=== PATIENT | male | born 1980 | race Caucasian/White ===

== ENCOUNTER 2021-02-22 10:47 | Observation (INO) | payer OTHER, SELFPAY ==
[2021-02-22] VITALS (10 sets, daily range): BP systolic 100–133; BP diastolic 53–81; PULSE 55–106; RESP 15–18; TEMP 36.6–37.2; O2SAT 96–100; BMI 29.7; BMI 31.3
--- NOTE | 2021-02-22 | APP_PTH ---
PATIENT: ERIC MARTINEZ LOC: MS2 U#:[id number] AGE/SX: 40/M ROOM: [facility] [id number] RE02/22/[address]: Dr. Oskar Nguyen MD : 1980 BED: 1 DIS: 02/23/2021 SPEC #: [id number] RECD: 02/24/21 07:35 STATUS: SANDI REQ #: [id number] BRIANNE: 02/22/21 00:[address]: Oskar Nguyen DEPT: SURGICAL PATHOLOGY RECD BY: Luis Antonio Colunga ENTERED: 02/24/21 08:08 SP TYPE: APPENDIX OTHR DR: No Primary Care Phys Tissues: Appendix, NOS Procedures: Surgery Specimen Level III HEADER OPERATION: Laparoscopic appendectomy PRE-OP DIAGNOSIS: Acute appendicitis TISSUE SUBMITTED: Appendix MICROSCOPIC DIAGNOSIS Appendix, appendectomy: Acute appendicitis and periappendicitis. TANVIR:kade 02/25/2021 MICROSCOPIC DESCRIPTION Slides are reviewed. GROSS DESCRIPTION Received in fixative is one container labeled with the patient's name and designated appendix. The specimen consists of a C-shaped appendix measuring 8 cm in length and up to 1 cm in diameter. The attached periappendiceal adipose tissue measures up to 1.5 cm in width. The serosa is congested. No obvious perforation is identified. The serosa is covered with puga, purulent exudate. The lumen contains fecal material. No fecalith is identified. [employer] Supervisor sections are submitted in one cassette. / SJ:kade 02/24/2021 :2 CPT: 13499
--- NOTE | 2021-02-22 11:01 | CT_ITS ---
We are attempting to reach an attending provider to discuss findings. An addendum with communication details will be sent when the communication is complete. EXAM: CT ABDOMEN AND PELVIS WITH INTRAVENOUS CONTRAST : 1980 CLINICAL INDICATION: abdominal pain -- IV PO Contrast TECHNIQUE: Helically acquired images were obtained of the abdomen and pelvis with intravenous contrast. This CT exam was performed using one or more of the following dose reduction techniques: automated exposure control, adjustment of the mA and/or kV according to patient size, and/or use of iterative reconstruction technique. This report was created using [employer] report [employer] technology. CONTRAST: Oral Tamp; IV Gastrografin Tamp; 100mL Isovue-300 COMPARISON: None. FINDINGS: LOWER THORAX: Unremarkable. Lung bases are clear. No cardiomegaly. No significant pericardial effusion. ABDOMEN: LIVER: Unremarkable. Homogeneous. No focal mass. GALLBLADDER AND BILE DUCTS: Unremarkable. No calcified gallstones. No gallbladder distention or wall edema. No intra- or extrahepatic biliary ductal dilation. PANCREAS: Unremarkable. No focal cystic or solid mass. SPLEEN: Unremarkable. Normal size without focal cystic or solid mass. ADRENALS: Unremarkable. No nodules. KIDNEYS AND URETERS: Unremarkable. Normal renal size and position. No hydronephrosis. STOMACH AND BOWEL: Unremarkable. No stomach or bowel distention. No focal inflammatory change. PELVIS: APPENDIX: An enlarged retrocecal appendix noted containing appendicoliths and associated with adjacent fat stranding consistent with acute appendicitis. Appendix measures 12 mm in maximum diameter. No evidence of perforation or abscess. BLADDER: Unremarkable. REPRODUCTIVE: Unremarkable as visualized. No mass. ABDOMEN and PELVIS: INTRAPERITONEAL SPACE: Unremarkable. No ascites or other fluid collection. No free air. BONES/JOINTS: Unremarkable. No suspicious lytic or blastic abnormality. SOFT TISSUES: Unremarkable. No discrete abdominal or pelvic wall hernia. VASCULATURE: Unremarkable. Abdominal aorta is non-dilated. LYMPH NODES: Unremarkable. No enlarged lymph nodes. CT/Abdomen/Pelvis WITH Contrast IMPRESSION: Acute retrocecal appendicitis without evidence of abscess or perforation. Individualized dose optimization techniques were used for this CT. at 1348 Reported and signed by: Tez Gordon MD Electronically Signed: Tez Gordon MD at 13:47 EDT Tel , Service support ,
--- NOTE | 2021-02-22 11:04 | EDS_ITS ---
HPI HPI - GI History of Present Illness Chief Complaint: Abd Pain Informant: patient and spouse/S.O. Narrative Narrative: 40-year-old male presents to the emergency department with abdominal pain. Patient states that a lower abdominal pressure began yesterday followed by diarrhea. He notes vomiting this morning. He also notes a sharp pain in the right lower quadrant. Pain is worse with movement and car ride. Reported fevers. He got his second Covid vaccination last Wednesday has had a headache and fatigue most of the week. No prior abdominal surgeries. He takes no medications. PFSH PFSH Medical History no medical history no medical history Home Medications NK 02/22/21 [History Last Taken Unknown] Allergy/AdvReac Type Severity Reaction Status Date / Time amoxicillin [Amoxicillin] Allergy Mild Rash Verified 02/22/21 10:48 egg Allergy Mild Unknown Verified 02/22/21 10:48 Surgical History no surgical history no surgical history Social History (Updated 02/22/21 @ 11:[address] Oskar Bender, DO) current gender identity: male Smoking Status: Never smoker substance use type: does not use ROS ROS ED Constitutional Constitutional ED: Denies chills or weight loss Eyes Eyes: Denies change in vision or diplopia ENT ENT ED: Denies ear pain, rhinorrhea or sore throat Cardiovascular Cardiovascular: Denies chest pain, orthopnea, palpitations or racing heartbeat Respiratory/Chest Respiratory/Chest: Denies cough, dyspnea or orthopnea Gastrointestinal Gastrointestinal: Reports abdominal pain, diarrhea, nausea and vomiting Genitourinary Genitourinary ED: Denies dysuria, hematuria or urinary frequency Musculoskeletal Musculoskeletal: Denies arthralgias or myalgias Integumentary Denies abscess or rash Neurologic Neurologic: Denies headache(s) or weakness Psychiatric Psychiatric: Denies anxiety, depression, suicidal ideation or suicidal thoughts Endocrine Endocrinology: Denies polydipsia, polyphagia or polyuria Allergic/Immunologic Allergic/Immunologic ED: Denies mouth swelling, tongue swelling or urticaria EXAM Physical Exam Const Vital Signs: 02/22/21 10:49 Temperature 98.9 F Temperature Source Temporal Pulse Rate 65 Respiratory Rate 17 Blood Pressure 127/81 H Blood Pressure Mean 96 Pulse Ox 100 Oxygen Delivery Method Room Air Positive well nourished and well developed General Appearance ED: well developed HEENT Reports normocephalic, head/scalp atraumatic, TM's clear and moist mucous membranes normocephalic and atraumatic Tympanic Membrane ED: Yes TM's clear Eyes PERRL and EOMs intact bilaterally Neck no lymphadenopathy, supple and no JVD Resp normal respiratory effort and clear to auscultation bilaterally Cardio regular rate, regular rhythm and no murmurs GI normal to inspection, nondistended, normoactive bowel sounds GI Narrative: Negative heeltap Palpation: soft and tender RLQ and suprapubic; Negative for guarding Back/Spine no CVA tenderness and normal ROM Lumbar Spine / Lower Back: Negative for lumbar spinal tenderness Extremity normal to inspection General Extremety ED: Negative for edema General Extremity: Negative for edema Neuro oriented x3 and CN's II-XII intact bilaterally Sensorium / Orientation: alert, oriented to person, oriented to place and oriented to time Motor Exam: strength 5/5 throughout Psych mental status grossly normal Mood & Affect: Negative for depressed or tearful Skin no rashes or lesions noted and no wounds Rashes: no rashes MDM MDM MDM Narrative Medical decision making narrative: Patient received morphine Zofran and fluids. His white count is elevated at 19.6. Urinalysis normal. CT of the abdomen pelvis with oral and IV contrast is consistent with acute appendicitis with an appendicolith. Patient received Cipro and Flagyl. I spoke with our surgeon Dr. Nguyen. Plan is admission Lab Data Attestation: I reviewed the patient's lab results. Labs: Laboratory Results - last 24 hr 02/22/21 02/22/21 02/22/21 11:10 11:10 12:35 WBC 19.6 H RBC 5.00 Hgb 15.3 Hct 44.5 MCV 89.0 MCH 30.6 MCHC 34.4 RDW Std Deviation 42.0 RDW Coeff of Debbie 12.8 Plt Count 373 MPV 8.7 Immature Gran % (Auto) 0.400 Neut % (Auto) 90.5 H Lymph % (Auto) 4.0 L [place] % (Auto) 4.7 Eos % (Auto) 0.1 Baso % (Auto) 0.3 Absolute Neuts (auto) 17.8 H Absolute Lymphs (auto) 0.79 L Nucleated RBC % 0 Sodium 138 Potassium 4.3 Chloride 105 Carbon Dioxide 26.0 Anion Gap 7 BUN 16 Creatinine 1.13 Estim Creat Clear Calc 82.06 Est GFR (MDRD) Af Amer 93 Est GFR (MDRD) Non-Af 77 BUN/Creatinine Ratio 14.2 Glucose 114 H Calcium 8.8 Total Bilirubin 0.70 AST 22 ALT 37 Alkaline Phosphatase 122 H Total Protein 7.6 Albumin 4.0 Globulin 3.6 Albumin/Globulin Ratio 1.1 Lipase 64 L Urine Color Yellow Urine Clarity Clear Urine pH 6.5 Ur Specific [place] 1.015 Urine Protein Negative Urine Glucose (UA) Normal Urine Ketones 50 H Urine Occult Blood 10 H Urine Nitrite Negative Urine Bilirubin Negative Urine Urobilinogen Normal Ur Leukocyte Esterase Negative Discharge Plan Dx/Rx/DC Orders Clinical Impression: Acute appendicitis Disposition Disposition: Acute Care Hospital [facility]
[2021-02-22 11:20] LABS: Absolute Lymphocyte Count 0.79 X10^3/uL (0.83-4.51); Absolute Neutrophil Count 17.8 X10^3/uL (2.0-7.7); Basophil# 0.06 X10^3/uL; Basophil% 0.3 % (0-1); Eosinophil# 0.02 X10^3/uL; Eosinophils% 0.1 % (0-5); Hematocrit 44.5 % (40-54); Hemoglobin 15.3 g/dL (13.0-16.5); Lymphocyte # 0.79 X10^3/ul (0.83-4.51); Mean Corp Hgb Conc 34.4 g/dL (32-36); Mean Corpuscular Hgb 30.6 pg (27.0-32.0); Mean Platelet Vol. 8.7 fl (6.2-12.0); Monocyte# 0.93 X10^3/uL; Monocyte% 4.7 % (0-10); NRBC Flagged by Analyzer 0 % (0-5); Neutrophil # 17.75 X10^3/uL (2.7-7.7); Neutrophil % 90.5 % (47-70); Platelet Count 373 K/mm3 (150-450); RBC Distribution Width CV 12.8 % (11.6-14.6); White Blood Count 19.6 K/mm3 (4.4-11.0)
[2021-02-22 11:36] LABS: ALB/GLOB Ratio 1.1 RATIO (0.9-2.4); AST(SGOT) 22 U/L (15-37); Alanine Aminotransfer ALT/SGPT 37 U/L (16-61); Alkaline Phosphatase 122 U/L (45-117); Anion Gap 7 (5-15); BUN 16 mg/dL (7-18); BUN/Creat Ratio 14.2 RATIO (10-20); Calcium,Total 8.8 mg/dL (8.5-10.1); Chloride 105 mmol/L (98-107); Creatinine, Serum 1.13 mg/dL (0.70-1.30); EST Glomerular Filtration Rate 77 mL/min (>60); Est Glom Filt Rate - Afr Amer 93 mL/min (>60); Estimated Creatinine Clearance 82.06 ml/min; Globulin 3.6 g/dL (2.2-4.2); Glucose 114 mg/dL (74-106); Lipase 64 U/L (73-393); Potassium 4.3 mmol/L (3.5-5.1); Protein, Total 7.6 g/dL (6.4-8.2); Sodium Level 138 mmol/L (136-145)
[2021-02-22] MEDS: Morphine 4 MG/ML Syringe IV (11:42)
[2021-02-22] MEDS: Ondansetron 4 MG/2 ML Vial IV ×2 (11:42→14:56)
[2021-02-22] MEDS: 0.9% Normal Saline 1,000 ML 1000 ML IV (11:42)
[2021-02-22 12:41] LABS: Bacteria 0 SEEN /hpf (None Seen); Mucous, Urine 0 SEEN /hpf (<or=2+)
[2021-02-22 12:50] LABS: Color, Urine Yellow (Yellow); Glucose, Dipstick Normal (Normal); Ketone-Dipstick 50 mg/dl (Negative); Leukocyte Esterase-Dipstick Negative /ul (Negative); Nitrite-Dipstick Negative (Negative); Occult Blood-Urine 10 /ul (Negative); Protein-Dipstick Negative (Negative); Specific Gravity, Urine 1.015 (1.002-1.030); Urine Bilirubin Dipstick Negative (Negative); Urine Clarity Clear (Clear); Urine Urobilinogen Normal (Normal); Urine pH 6.5 (5.0 - 8.0)
[2021-02-22 13:18] LABS: Red Blood Cells-Urine 0-5 SEEN /hpf (0-5); White Blood Cells 0-5 SEEN /hpf (0-5)
[2021-02-22] MEDS: Ciprofloxacin 400 MG/200 ML BAG 200 MG IV ×2 (13:45→22:22)
--- NOTE | 2021-02-22 14:24 | CON.PCM.SX_ITS ---
Assessment & Plan Assessment/Plan (1) Acute appendicitis: QUALIFIERS: Acute appendicitis type: with localized peritonitis Appendicitis gangrene presence: unspecified whether gangrene present Appendicitis perforation presence: without perforation Appendicitis abscess presence: without abscess Qualified Code(s): K35.30 - Acute appendicitis with localized peritonitis, without perforation or gangrene PLAN: My plan will be to perform a laparoscopic appendectomy.I have counseled the patient as to the risks of the procedure, including but not limited to: infection, bleeding, injury to any blood vessels/nerves, injury to any bowel/bladder, injury to any intraabdominal organs such as the liver/spleen, perforation of the GI tract, intraabdominal abscess/bleeding, incisional hernias, injury to the common bile duct/biliary ducts, injury to the spermatic cord/vessels/testicles, recurrence of hernia(s), complications of anesthesia, etc. The patient verbalizes understanding. HPI Consult Data Date of Consult: 02/22/21 HPI Narrative HPI Narrative: ERIC MARTINEZ, is a 40-year-old male presents to the emergency department with abdominal pain. Patient states that a lower abdominal pressure began yesterday followed by diarrhea. He notes vomiting this morning. He also notes a sharp pain in the right lower quadrant. Pain is worse with movement and car ride. Reported fevers. He got his second Covid vaccination last Wednesday has had a headache and fatigue most of the week. No prior abdominal surgeries. He takes no medications. [facility] Medical History no medical history Home Medications NK 02/22/21 [History Last Taken Unknown] Allergy/AdvReac Type Severity Reaction Status Date / Time amoxicillin [Amoxicillin] Allergy Mild Rash Verified 02/22/21 10:48 egg Allergy Mild Unknown Verified 02/22/21 10:48 Surgical History no surgical history Social History current gender identity: male Smoking Status: Never smoker substance use type: does not use ROS Constitutional Constitutional: Denies chills, fatigue or fever(s) Eyes Eyes: Denies change in vision Cardiovascular Cardiovascular: Denies chest pain, dyspnea or palpitations Respiratory/Chest Respiratory/Chest: Denies cough or dyspnea Gastrointestinal Gastrointestinal: Reports abdominal pain, nausea and vomiting Genitourinary Genitourinary: Denies dysuria Musculoskeletal Musculoskeletal: Denies back pain Integumentary Integumentary: Denies rash Physical Exam Const alert, oriented x3 and no apparent distress General Appearance: cooperative HEENT normocephalic and head/scalp atraumatic Eyes PERRL and EOMs intact bilaterally Resp clear to auscultation bilaterally Cardio Rate: regular rate Rhythm: regular rhythm GI Palpation: tender McBurney's point Extremity Negative for no calf tenderness General Extremity: Negative for edema Lab / Micro Data Result Diagrams: 02/22/21 11:10 02/22/21 11:10 Labs: Laboratory Results - last 24 hr 02/22/21 11:10: WBC 19.6 H, RBC 5.00, Hgb 15.3, Hct 44.5, MCV 89.0, MCH 30.6, MCHC 34.4, RDW Std Deviation 42.0, RDW Coeff of Debbie 12.8, Plt Count 373, MPV 8.7, Immature Gran % (Auto) 0.400, Neut % (Auto) 90.5 H, Lymph % (Auto) 4.0 L, [place] % (Auto) 4.7, Eos % (Auto) 0.1, Baso % (Auto) 0.3, Absolute Neuts (auto) 17.8 H, Absolute Lymphs (auto) 0.79 L, Nucleated RBC % 0 02/22/21 11:10: Sodium 138, Potassium 4.3, Chloride 105, Carbon Dioxide 26.0, Anion Gap 7, BUN 16, Creatinine 1.13, Estim Creat Clear Calc 82.06, Est GFR (MDRD) Af Amer 93, Est GFR (MDRD) Non-Af 77, BUN/Creatinine Ratio 14.2, Glucose 114 H, Calcium 8.8, Total Bilirubin 0.70, AST 22, ALT 37, Alkaline Phosphatase 122 H, Total Protein 7.6, Albumin 4.0, Globulin 3.6, Albumin/Globulin Ratio 1.1, Lipase 64 L 02/22/21 12:35: Urine Color Yellow, Urine Clarity Clear, Urine pH 6.5, Ur Specif ic [place] 1.015, Urine Protein Negative, Urine Glucose (UA) Normal, Urine Ketones 50 H, Urine Occult Blood 10 H, Urine Nitrite Negative, Urine Bilirubin Negative, Urine Urobilinogen Normal, Ur Leukocyte Esterase Negative, Urine RBC 0-5 SEEN, Urine WBC 0-5 SEEN, Urine Bacteria 0 SEEN, Urine Mucus 0 SEEN Micro: Microbiology 02/22/21 13:55 Nasal Secretion SARS-CoV-2 Antigen (Rapid) - Final Radiology Impression Abdomen/Pelvis CT 02/22/21 11:01 IMPRESSION: Acute retrocecal appendicitis without evidence of abscess or perforation. Individualized dose optimization techniques were used for this CT. at 1348 Reported and signed by: Tez Gordon MD Electronically Signed: Tez Gordon MD at 13:47 EDT Tel , Service support , ADDENDUM: 02/22/21 1401 IMPRESSION: Acute retrocecal appendicitis without evidence of abscess or perforation. Individualized dose optimization techniques were used for this CT. at 1348 Reported and signed by: Tez Gordon MD N.B. : The above Results were Read Back by Tez Gordon MD to Oskar Bender MD, and understanding confirmed on 02/22/2021 13:55:01 (ET). Electronically Signed: Tez Gordon MD at 13:47 EDT Tel , Service support ,
[2021-02-22] MEDS: metroNIDAZOLE 500 MG/100 ML BAG 100 MG IV ×2 (15:37→21:14)
[2021-02-22] MEDS: Bupivacaine Mpf 0.5% 30 ML VIAL (16:08)
--- NOTE | 2021-02-22 16:09 | PCM.OPRPT ---
Problems Associated Problem List Diagnoses (1) Acute appendicitis: Report of Operation Date of Procedure: 02/22/21 Pre-Operative Diagnosis: Acute appendicitis Post-Operative Diagnosis: Same Surgery/Procedure Performed:: Laparoscopic appendectomy Surgeon: Oskar Nguyen entry level truck driver: Luann Tse Type of Anesthesia: General Anesthesiologist: Otis Muñoz Specimen's removed: Appendix Drains: None Estimated Blood Loss (mL): < 25 cc Description of Procedure: Patient was brought into the operating room. Placed in the supine position. Under excellent general anesthetic the abdomen was sterilely prepped and draped in the usual fashion. Local was injected infraumbilically. Dissection was carried down to the fascia. The fascia was grasped with a [place]. Varies needle was placed inside the abdomen. The abdomen was insufflated to 15 torr. A 10/12 trocar was placed without difficulty. Suprapubic #5 trochars placed left lower quadrant #5 trochars placed. Both of these were placed under direct visualization without injury to underlying structures. Patient was placed in the headdown and rotated to the left. He was noted to have a acute retrocecal appendicitis.. I took down the mesoappendix with the Enseal I had excellent hemostasis I transected the base of the appendix with a 45 linear cutter. I had excellent hemostasis. Placed the specimen in a specimen bag delivered through the umbilical port without difficulty. Irrigated the right side right upper quadrant and pelvis area no pus was identified. I ran the small bowel no Meckel's diverticulum was identified. I removed the trochars under direct visualization good with stasis was noted. Close the fascia the umbilical port with a [id number] stitch of 0 Vicryl. Skin incisions were closed with subcuticular stitches of 4-0 Monocryl. Steri-Strips were applied sterile dressings were applied and the patient tolerated the procedure well. Admit VTE Documentation VTE Present on Admission: No VTE Mechan Device Prophylaxis: SCD's VTE Pharm Prophylaxis ordered?: No Reason prophylaxis not ordered:: Treatment Not Indicated
[2021-02-22] MEDS: 0.9% Normal Saline 1,000 ML 75 ML IV (16:15)
--- NOTE | 2021-02-22 16:18 | DCINST_ITS ---
Discharge Instructions Procedure Appendectomy Diet Discharge Diet: Light diet - advance as tolerated (if you have questions about your diet instructions, please talk to you doctor.) Activity Discharge Activity: May Not Drive (for 3-5 days or while taking narcotic pain meds.) May shower in (days): 1 Dressing / Incision Call your doctor if your incision/area has: Continuous Slow Oozing, Sudden Increased Bleeding, Increased Pain/ Swelling, Increased Redness and Foul Smelling Discharge Call your doctor if you observe: Fever of 101 or Higher Suture Line Care: Avoid Pulling/Pushing and Avoid Pinching/Bending Additional Dressing/Incision Instructions:: Keep dressing clean and dry. Change or remove dressing in 2 days. Leave steri strips for 1 week. May protect with a gauze bandaid. Follow Up Care Please Follow Up With: Chio Spence PA-C When: Call office to schedule an appointment to be seen in 1 week. Test Results: Test results from this visit will be discussed in further detail at your follow-up appointment, if applicable. Discharge Plan Admission Admit Date/Time: 02/22/21 13:35 Attending Provider: Oskar Nguyen Primary Care Provider: Care Physician,Giselle Primary Discharge Orders/Prescriptions Prescriptions: New oxycodone-acetaminophen [Percocet] 5-325 mg tablet 1 tab PO Q4H PRN (Reason: pain) 5 Days Qty: 20 RF: 0 Referrals / Follow Up: Care Physician,No Primary [Primary Care Provider] - Chio Spence PA-C [PHYSICIAN ELECTRIC STOP INSTALLER] -
--- NOTE | 2021-02-22 17:26 | PCS.PANDOC ---
PANDEMIC DOCUMENTATION INITIATED: Date: 12/16/2020 Time: 190
[2021-02-22] MEDS: Ibuprofen 400 MG Tablet 800 MG PO (21:49)
[2021-02-23 02:27] VITALS: BP 109/63; PULSE 76; RESP 16; TEMP 36.6; O2SAT 94
[2021-02-23] MEDS: 0.9% Normal Saline 1,000 ML 75 ML IV (04:41)
[2021-02-23] MEDS: metroNIDAZOLE 500 MG/100 ML BAG 100 MG IV (05:15)
[2021-02-23] MEDS: Ibuprofen 400 MG Tablet 800 MG PO (05:23)
[2021-02-23 05:25] VITALS: BP 106/57; PULSE 66; RESP 16; TEMP 36.7; O2SAT 96
[2021-02-23 06:43] LABS: Absolute Lymphocyte Count 1.21 X10^3/uL (0.83-4.51); Absolute Neutrophil Count 7.7 X10^3/uL (2.0-7.7); Basophil# 0.04 X10^3/uL; Basophil% 0.4 % (0-1); Eosinophil# 0.09 X10^3/uL; Eosinophils% 0.9 % (0-5); Hematocrit 39.6 % (40-54); Hemoglobin 13.1 g/dL (13.0-16.5); Lymphocyte # 1.21 X10^3/ul (0.83-4.51); Mean Corp Hgb Conc 33.1 g/dL (32-36); Mean Corpuscular Volume 90.8 fL (80-94); Mean Platelet Vol. 9.2 fl (6.2-12.0); Monocyte# 0.95 X10^3/uL; Monocyte% 9.4 % (0-10); NRBC Flagged by Analyzer 0 % (0-5); Neutrophil # 7.74 X10^3/uL (2.7-7.7); Neutrophil % 76.7 % (47-70); Platelet Count 329 K/mm3 (150-450); RBC Distribution Width CV 12.9 % (11.6-14.6); RBC Distribution Width SD 43.2 fl (35.1-43.9); Red Blood Count 4.36 M/mm3 (4.6-6.2); White Blood Count 10.1 K/mm3 (4.4-11.0)
[2021-02-23 06:58] LABS: Anion Gap 4 (5-15); BUN 12 mg/dL (7-18); BUN/Creat Ratio 10.3 RATIO (10-20); Calcium,Total 7.7 mg/dL (8.5-10.1); Chloride 106 mmol/L (98-107); Creatinine, Serum 1.17 mg/dL (0.70-1.30); EST Glomerular Filtration Rate 74 mL/min (>60); Est Glom Filt Rate - Afr Amer 89 mL/min (>60); Estimated Creatinine Clearance 79.25 ml/min; Glucose 113 mg/dL (74-106); Potassium 3.8 mmol/L (3.5-5.1); Sodium Level 139 mmol/L (136-145)
[2021-02-23] MEDS: Ciprofloxacin 400 MG/200 ML BAG 200 MG IV (09:16)
--- NOTE | 2021-02-23 09:47 | PCM.PN.SRG ---
Subjective Subjective No pain today. Tolerating a diet. Objective Data Objective Data Dressings are dry abdomen is soft Vital Signs: Vital Signs Temp Pulse Resp BP Pulse Ox 98.0 F 66 16 106/57 L 96 02/23/21 05:25 02/23/21 05:25 02/23/21 05:25 02/23/21 05:25 02/23/21 05:25 Oxygen Delivery Method Room Air Weight: 200 lb 0.007 oz Body Mass Index (BMI) 31.3 Intake & Output: Intake and Output for Last 24 Hours 02/21/21 02/22/21 02/23/21 23:59 23:59 23:59 Intake Total 1599 1832.5 / 1832.5 Balance 1599 1832.5 / 1832.5 Lab / Micro Data Result Diagrams: 02/23/21 05:42 02/23/21 05:42 Labs: Laboratory Results - last 24 hr 02/22/21 11:10: WBC 19.6 H, RBC 5.00, Hgb 15.3, Hct 44.5, MCV 89.0, MCH 30.6, MCHC 34.4, RDW Std Deviation 42.0, RDW Coeff of Debbie 12.8, Plt Count 373, MPV 8.7, Immature Gran % (Auto) 0.400, Neut % (Auto) 90.5 H, Lymph % (Auto) 4.0 L, [place] % (Auto) 4.7, Eos % (Auto) 0.1, Baso % (Auto) 0.3, Absolute Neuts (auto) 17.8 H, Absolute Lymphs (auto) 0.79 L, Nucleated RBC % 0 02/22/21 11:10: Sodium 138, Potassium 4.3, Chloride 105, Carbon Dioxide 26.0, Anion Gap 7, BUN 16, Creatinine 1.13, Estim Creat Clear Calc 82.06, Est GFR (MDRD) Af Amer 93, Est GFR (MDRD) Non-Af 77, BUN/Creatinine Ratio 14.2, Glucose 114 H, Calcium 8.8, Total Bilirubin 0.70, AST 22, ALT 37, Alkaline Phosphatase 122 H, Total Protein 7.6, Albumin 4.0, Globulin 3.6, Albumin/Globulin Ratio 1.1, Lipase 64 L 02/22/21 12:35: Urine Color Yellow, Urine Clarity Clear, Urine pH 6.5, Ur Specific [place] 1.015, Urine Protein Negative, Urine Glucose (UA) Normal, Urine Ketones 50 H, Urine Occult Blood 10 H, Urine Nitrite Negative, Urine Bilirubin Negative, Urine Urobilinogen Normal, Ur Leukocyte Esterase Negative, Urine RBC 0-5 SEEN, Urine WBC 0-5 SEEN, Ur Squamous Epith Cells Not Reportable, Urine Bacteria 0 SEEN, Urine Mucus 0 SEEN 02/23/21 05:42: WBC 10.1, RBC 4.36 L, Hgb 13.1, Hct 39.6 L, MCV 90.8, MCH 30.0, MCHC 33.1, RDW Std Deviation 43.2, RDW Coeff of Debbie 12.9, Plt Count 329, MPV 9.2, Immature Gran % (Auto) 0.600, Neut % (Auto) 76.7 H, Lymph % (Auto) 12.0 L, [place] % (Auto) 9.4, Eos % (Auto) 0.9, Baso % (Auto) 0.4, Absolute Neuts (auto) 7.7, Absolute Lymphs (auto) 1.21, Nucleated RBC % 0 02/23/21 05:42: Sodium 139, Potassium 3.8, Chloride 106, Carbon Dioxide 29.0, Anion Gap 4 L, BUN 12, Creatinine 1.17, Estim Creat Clear Calc 79.25, Est GFR (MDRD) Af Amer 89, Est GFR (MDRD) Non-Af 74, BUN/Creatinine Ratio 10.3, Glucose 113 H, Calcium 7.7 L Micro: Microbiology 02/22/21 13:55 Nasal Secretion SARS-CoV-2 Antigen (Rapid) - Final Radiography Diagnostic Testing: Radiology Impression Abdomen/Pelvis CT 02/22/21 11:01 IMPRESSION: Acute retrocecal appendicitis without evidence of abscess or perforation. Individualized dose optimization techniques were used for this CT. at 1348 Reported and signed by: Tez Gordon MD Electronically Signed: Tez Gordon MD at 13:47 EDT Tel , Service support , ADDENDUM: 02/22/21 1401 IMPRESSION: Acute retrocecal appendicitis without evidence of abscess or perforation. Individualized dose optimization techniques were used for this CT. at 1348 Reported and signed by: Tez Gordon MD N.B. : The above Results were Read Back by Tez Gordon MD to Oskar Bender MD, and understanding confirmed on 02/22/2021 13:55:01 (ET). Electronically Signed: Tez Gordon MD at 13:47 EDT Tel , Service support , Assessment & Plan Assessment/Plan (1) Acute appendicitis: QUALIFIERS: Acute appendicitis type: with localized peritonitis Appendicitis gangrene presence: unspecified whether gangrene present Appendicitis perforation presence: without perforation Appendicitis abscess presence: without abscess Qualified Code(s): K35.30 - Acute appendicitis with localized peritonitis, without perforation or gangrene PLAN: We will discharge today.
== END 2021-02-23 11:30 | disposition home or self-care (01) ==
LOC: ED 13:17 → MS2 02-23 02:31
PROVIDERS: Admitting Provider Surgery; Emergency Provider Emergency Medicine; Referring Provider Surgery; Visit Provider Surgery
PROC: 0DTJ4ZZ Resection of Appendix, Percutaneous Endoscopic Approach (ICD-10-PCS; CPT 44970; principal; 2021-02-22 16:00)
DX: K35.30 Acute appendicitis with localized peritonitis, without perforation or gangrene (principal)
CPT/HCPCS: 00840; 44970; 36415; 74177; 80048; 80053; 81001; 83690; 85025; 87426; 88304; 96361; 96365; 96366; 96368; 96375; 96376; 99218; 99251; 99284; J7030; J7120; Q9967; A4216; C1760; G0378; G0463; J0744; J2405

== ENCOUNTER 2021-03-23 16:00 | Emergency (ER) | payer OTHER, SELFPAY ==
[2021-03-23 16:01] VITALS: BP 127/115; PULSE 78; RESP 25; TEMP 36.3; O2SAT 99; BMI 30.5
--- NOTE | 2021-03-23 16:35 | CT_ITS ---
STUDY: CT ABDOMEN AND PELVIS WITHOUT CONTRAST REASON FOR EXAM: Male, 40 years old. Kidney stones abdominal pain for 3 weeks post appendectomy left flank pain RADIATION DOSAGE (If Supplied By Facility): CTDIvol = ( 10.71 ) mGy, DLP = ( 422.92 ) mGycm TECHNIQUE: Transaxial images were obtained from the dome of the diaphragm to the symphysis pubis without oral contrast, and without intravenous contrast. Sagittal and coronal images were reconstructed. Individualized dose optimization techniques were used for this CT. COMPARISON: None. FINDINGS: The visualized lung bases are unremarkable. The visualized portions of the heart are within normal limits. Normal liver. Normal gallbladder and extrahepatic biliary system. Normal spleen. Normal pancreas. Normal bilateral adrenal glands. There is a 5 mm left midureteral stone without hydronephrosis. There are additional smaller, 2 -- 3 mm bilateral calyceal stones. Right ureter is clear. Bowel is normal with appendectomy. Surgical bed is clear. Normal abdominal aorta. Normal inferior vena cava. Normal retroperitoneum. Normal urinary bladder. Normal abdominal wall. Normal osseous structures. CT/Abdomen/Pelvis without Cont IMPRESSION: 5 mm left mid ureteral stone without hydronephrosis. Bilateral smaller, less than 3 mm calyceal an obstructing calculi. Normal right lower quadrant after appendectomy. Electronically Signed: Deepti Stafford MD at 17:40 EST Tel , Service support ,
--- NOTE | 2021-03-23 16:35 | EX.ED.DYSGE1 ---
HPI History of Present Illness Chief Complaint: Abd Pain Narrative Narrative: Patient presents left-sided flank and abdominal pain. No testicular pain no urinary symptoms. He had an appendectomy about a month ago. He has not had prior kidney stones. No fevers or chills. No right upper quadrant pain or right lower quadrant pain PFSH PFSH Medical History Hearing loss, left Hearing loss, right Migraines Non-smoker Medical History no medical history Home Medications oxycodone-acetaminophen [Percocet] 1 tab PO Q4H PRN 5 Days #20 tab 02/22/21 [Rx Last Taken Unknown] oxycodone-acetaminophen [Percocet] 1 tab PO Q4H PRN 5 Days #20 tab 02/23/21 [Rx Last Taken Unknown] ketorolac 10 mg PO TID PRN 5 Days tab 03/23/21 [Rx Last Taken Unknown] oxycodone-acetaminophen [Percocet] 1 tab PO Q6H PRN 3 Days #12 tab 03/23/21 [Rx Last Taken Unknown] tamsulosin [Flomax] 0.4 mg PO DAILY #5 cap 03/23/21 [Rx Last Taken Unknown] Allergy/AdvReac Type Severity Reaction Status Date / Time amoxicillin [Amoxicillin] Allergy Mild Rash Verified 02/22/21 17:29 egg Allergy Mild Unknown Verified 02/22/21 17:29 Surgical History History of appendectomy Social History Smoking Status: Never smoker substance use type: does not use ROS ROS ED ROS Narrative Past medical history: Reviewed Medications: Reviewed Social history: Noncontributory Review of systems: All systems negative except as indicated General: No fever Eyes: No visual changes ENT: No upper airway congestion, normal voice Neck: No neck pain Cardiovascular: No chest pain Respiratory: No shortness of breath or cough Gastrointestinal: As in HPI Genitourinary: No dysuria, no testicular pain Musculoskeletal: Denies myalgias no difficulty with ambulation Skin: No rash Neurological: No memory loss, confusion or any focal weakness Psych: No recent behavioral changes Hematologic: No easy bleeding or easy bruising EXAM Physical Exam Narrative Exam Narrative: Physical exam General: Patient appears uncomfortable. Head: Normocephalic, Atraumatic Eyes: Conjunctiva not pale ENT: Moist mucous membranes Neck: Supple, Nontender, No lymphadenopathy Cardiovascular: Regular rate, Regular rhythm Respiratory: No distress, CTA bilaterally Abdomen: Soft, there is left-sided CVA tenderness, left lower abdominal tenderness it is ill-defined. : No testicular pain Back: Left-sided CVA tenderness as above otherwise normal Extremities: Nontender, No edema Skin: Normal color, No rash Neurological: Alert, Normal Strength, Normal Sensation Const Vital Signs: 03/23/21 16:01 Temperature 97.4 F L Temperature Source Temporal Pulse Rate 78 Respiratory Rate 25 H Blood Pressure 127/115 H Blood Pressure Mean 119 Pulse Ox 99 Oxygen Delivery Method Room Air MDM MDM MDM Narrative Medical decision making narrative: Patient is found to have a 5 millimeters stone with obstruction, his pain is significantly improved. I will discharge with a referral to urology. He does have some leukocytosis this is likely secondary to the pain. He does not have a UTI. Lab Data Labs: Laboratory Results - last 24 hr 03/23/21 03/23/21 03/23/21 16:22 16:22 17:30 WBC 16.4 H RBC 5.22 Hgb 15.7 Hct 44.7 MCV 85.6 MCH 30.1 MCHC 35.1 RDW Std Deviation 39.4 RDW Coeff of Debbie 12.6 Plt Count 347 MPV 8.8 Immature Gran % (Auto) 0.600 Neut % (Auto) 79.9 H Lymph % (Auto) 9.2 L Harper % (Auto) 9.1 Eos % (Auto) 0.7 Baso % (Auto) 0.5 Absolute Neuts (auto) 13.1 H Absolute Lymphs (auto) 1.52 Nucleated RBC % 0 Sodium 137 Potassium 4.1 Chloride 105 Carbon Dioxide 25.0 Anion Gap 7 BUN 22 H Creatinine 1.40 H Estim Creat Clear Calc 66.23 Est GFR (MDRD) Af Amer 72 Est GFR (MDRD) Non-Af 60 BUN/Creatinine Ratio 15.7 Glucose 99 Calcium 9.1 Urine Color Yellow Urine Clarity Clear Urine pH 7.0 Ur Specific [place] 1.010 Urine Protein Negative Urine Glucose (UA) Normal Urine Ketones 5 H Urine Occult Blood 25 H Urine Nitrite Negative Urine Bilirubin Negative Urine Urobilinogen Normal Ur Leukocyte Esterase Negative Urine RBC 0-5 SEEN Urine WBC 0-5 SEEN Ur Squamous Epith Cells 0 SEEN Urine Bacteria RARE Urine Mucus 0 SEEN Radiography Diagnostic Testing: Clinical Impression(s) from Imaging Studies Abdomen/Pelvis CT 03/23/21 16:35 IMPRESSION: 5 mm left mid ureteral stone without hydronephrosis. Bilateral smaller, less than 3 mm calyceal an obstructing calculi. Normal right lower quadrant after appendectomy. Electronically Signed: Deepti Stafford MD at 17:40 EST Tel , Service support , Discharge Plan Triage Chief Complaint: Abd Pain ED Provider: Gil King Dx/Rx/DC Orders Clinical Impression: Kidney stones Instructions: Kidney Stone (Urine) Prescriptions: New oxycodone-acetaminophen [Percocet] 5-325 mg tablet 1 tab PO Q6H PRN (Reason: pain) 3 Days Qty: 12 RF: 0 tamsulosin [Flomax] 0.4 mg capsule 0.4 mg PO DAILY Qty: 5 RF: 0 ketorolac 10 mg tablet 10 mg PO TID PRN (Reason: pain) 5 Days RF: 0 No Action oxycodone-acetaminophen [Percocet] 5-325 mg tablet 1 tab PO Q4H PRN (Reason: pain) 5 Days Qty: 20 RF: 0 oxycodone-acetaminophen [Percocet] 5-325 mg tablet 1 tab PO Q4H PRN (Reason: pain) 5 Days Qty: 20 RF: 0 Primary Care Provider: Care Physician,No Primary Referrals: Jesse Epstein MD [STAFF PHYSICIAN] - 3-5 Days Care Physician,No Primary [Primary Care Provider] - Disposition Disposition: Home, Self Care
[2021-03-23 16:44] LABS: Absolute Lymphocyte Count 1.52 X10^3/uL (0.83-4.51); Absolute Neutrophil Count 13.1 X10^3/uL (2.0-7.7); Basophil# 0.09 X10^3/uL; Basophil% 0.5 % (0-1); Eosinophil# 0.12 X10^3/uL; Eosinophils% 0.7 % (0-5); Hematocrit 44.7 % (40-54); Hemoglobin 15.7 g/dL (13.0-16.5); Lymphocyte # 1.52 X10^3/ul (0.83-4.51); Lymphocyte % 9.2 % (19-41); Mean Corp Hgb Conc 35.1 g/dL (32-36); Mean Corpuscular Hgb 30.1 pg (27.0-32.0); Mean Corpuscular Volume 85.6 fL (80-94); Mean Platelet Vol. 8.8 fl (6.2-12.0); Monocyte% 9.1 % (0-10); NRBC Flagged by Analyzer 0 % (0-5); Neutrophil # 13.11 X10^3/uL (2.7-7.7); Neutrophil % 79.9 % (47-70); Platelet Count 347 K/mm3 (150-450); RBC Distribution Width CV 12.6 % (11.6-14.6); RBC Distribution Width SD 39.4 fl (35.1-43.9); Red Blood Count 5.22 M/mm3 (4.6-6.2); White Blood Count 16.4 K/mm3 (4.4-11.0)
[2021-03-23] MEDS: Ondansetron 4 MG/2 ML Vial IV (16:47)
[2021-03-23] MEDS: Morphine 4 MG/ML Syringe IV (16:47)
[2021-03-23] MEDS: Ketorolac 15 MG/ML Vial IV (16:48)
[2021-03-23 17:01] LABS: Anion Gap 7 (5-15); BUN 22 mg/dL (7-18); BUN/Creat Ratio 15.7 RATIO (10-20); Calcium,Total 9.1 mg/dL (8.5-10.1); Chloride 105 mmol/L (98-107); EST Glomerular Filtration Rate 60 mL/min (>60); Est Glom Filt Rate - Afr Amer 72 mL/min (>60); Estimated Creatinine Clearance 66.23 ml/min; Glucose 99 mg/dL (74-106); Potassium 4.1 mmol/L (3.5-5.1); Sodium Level 137 mmol/L (136-145)
[2021-03-23 17:40] LABS: Mucous, Urine 0 SEEN /hpf (<or=2+); Squamous Epithelial Cells - UA 0 SEEN /hpf (0-5)
[2021-03-23 17:45] LABS: Color, Urine Yellow (Yellow); Glucose, Dipstick Normal (Normal); Ketone-Dipstick 5 mg/dl (Negative); Leukocyte Esterase-Dipstick Negative /ul (Negative); Nitrite-Dipstick Negative (Negative); Occult Blood-Urine 25 /ul (Negative); Protein-Dipstick Negative (Negative); Urine Bilirubin Dipstick Negative (Negative); Urine Clarity Clear (Clear); Urine Urobilinogen Normal (Normal)
[2021-03-23 17:59] LABS: Red Blood Cells-Urine 0-5 SEEN /hpf (0-5); White Blood Cells 0-5 SEEN /hpf (0-5)
[2021-03-23 18:01] LABS: Bacteria RARE /hpf (None Seen)
[2021-03-23] MEDS: oxyCODONE 5 MG Tablet 10 MG PO (18:39)
[2021-03-23 18:48] VITALS: BP 110/69; PULSE 71; RESP 16; O2SAT 96
== END 2021-03-23 18:49 | disposition home or self-care (01) ==
PROVIDERS: Emergency Provider Emergency Medicine
DX: N13.2 Hydronephrosis with renal and ureteral calculous obstruction (principal)
CPT/HCPCS: 74176; 80048; 81001; 85025; 96374; 96375; 99284; A4216; J2405

== ENCOUNTER → 2021-04-07 | Outpatient (CLI) | payer OTHER, SELFPAY ==
--- NOTE | 2021-04-07 | CALC_PTH ---
PATIENT: ERIC MARTINEZ LOC: [facility] U#:[id number] AGE/SX: 40/M ROOM: RE04/07/[address]: Dr. Jesse Epstein MD : 1980 BED: DIS: 04/07/2021 SPEC #: [id number] RECD: 04/07/21 15:02 STATUS: SANDI PATTERSONSrinivas #: [id number] BRIANNE: 04/07/21 00:[address]: Jesse Epstein DEPT: SURGICAL PATHOLOGY RECD BY: Luis Antonio Colunga ENTERED: 04/08/21 12:45 SP TYPE: Calculi OTHR DR: No Primary Care Phys [facility] Tissues: CALCULI Procedures: Surgery Specimen Level I HEADER OPERATION: Left ureteroscopy, basket extraction stones, ureteral stent PRE-OP DIAGNOSIS: Calculus of left ureter TISSUE SUBMITTED: Left ureteral calculi GROSS DIAGNOSIS Left ureteral calculi, removal: Fragments of unremarkable calculi (gross diagnosis only). AM:kade 04/09/2021 COMMENT The calculus is submitted in its entirety for chemical stone analysis. The results from this study will be reported separately. GROSS DESCRIPTION Received without fixative labeled with the patient's name and designated left ureteral calculi. The specimen consists of two black calculi together measuring 0.7 x 0.6 x 0.2 cm. The entire specimen is submitted for stone analysis. / AM:kade 04/08/21 CPT: 36731
== END | disposition home or self-care (01) ==
LOC: LABSPEC 15:40
PROVIDERS: Visit Provider Urology
DX: N20.1 Calculus of ureter (principal)
CPT/HCPCS: 82360; 88300